=== PATIENT | male | born 1975 | race Two or more races ===

== ENCOUNTER 2023-07-18 10:09 | Emergency (ER) | payer MEDICAID, OTHER ==
[~2023-07-18] VITALS: Ht 188 cm; Wt 163.0 kg
[2023-07-18 10:21] VITALS: O2SAT 95
[2023-07-18 10:45] LABS: BASOPHILS % 0.5 % (0.0-2.0); EOSINOPHILS % 0.1 % (0.0-5.0); HEMATOCRIT. 46.9 % (42.0-52.0); HEMOGLOBIN. 15.6 g/dL (14.0-18.0); LYMPHOCYTES % 9.2 % (20.0-50.0); MEAN CORPUSCULAR HGB CONC 33.2 g/dL (31.0-37.0); MEAN CORPUSCULAR VOLUME 84.3 fL (80.0-94.0); MEAN PLATELET VOLUME 7.8 fl (7.4-10.4); MONOCYTES % 3.7 % (2.0-8.0); NEUTROPHILS % 86.5 % (40.0-76.0); PLATELET 276 x1000/uL (130-400); RED BLOOD CELL COUNT 5.56 mill/uL (4.7-6.1); RED CELL DISTRIBUTION WIDTH 13.5 % (11.6-14.6); WHITE BLOOD COUNT 11.1 x1000/uL (4.5-11.0)
[2023-07-18 10:58] LABS: CHLORIDE 106 mEq/L (98-107); POTASSIUM 3.8 mEq/L (3.5-5.1); SODIUM 140 mEq/L (136-145)
[2023-07-18 11:00] LABS: CARBON DIOXIDE 26 mEq/L (21-32)
[2023-07-18 11:05] LABS: CREATININE 0.7 mg/dL (0.6-1.3); GLUCOSE 112 mg/dL (70-105); UREA NITROGEN BLOOD 11 mg/dL (9-23)
[2023-07-18 11:07] LABS: ALANINE AMINOTRANSFERASE 33 IU/L (10-49); ALBUMIN 4.6 g/dL (3.2-4.8); ASPARTATE AMINOTRANSFERASE 40 IU/L (<34); BILIRUBIN DIRECT 0.2 mg/dL (<=3.0)
[2023-07-18 11:08] LABS: BILIRUBIN TOTAL 0.8 mg/dL (0.1-1.0); PROTEIN TOTAL 7.7 g/dL (6.0-8.3)
[2023-07-18 11:16] LABS: TROPONIN I HIGH SENSITIVITY 60 ng/L (3.0-53)
[2023-07-18 11:19] LABS: CLARITY URINE CLEAR (CLEAR); COLOR URINE DARK YELLOW (YELLOW); GLUCOSE URINE NEGATIVE (NEGATIVE); KETONES URINE NEGATIVE (NEGATIVE); LEUKOCYTE ESTERASE URINE TRACE (NEGATIVE); NITRITE URINE NEGATIVE (NEGATIVE); OCCULT BLOOD URINE NEGATIVE (NEGATIVE); PH URINE >=9.0 (4.5-8.0); PROTEIN URINE 3+ (NEGATIVE); SPECIFIC GRAVITY URINE 1.029 (1.005-1.030)
[2023-07-18 11:31] LABS: SQUAMOUS EPITHELIAL CELL URINE FEW /lpf (RARE/1+)
[2023-07-18 11:32] LABS: MUCUS URINE TRACE /lpf (NONE/TRACE)
[2023-07-18 11:33] LABS: BACTERIA URINE 1+
[2023-07-18 11:37] LABS: RBC URINE 0-2 /hpf (0-2); WBC URINE 0-2 /hpf (0-2)
[2023-07-18] MEDS: ONDANSETRON HCL 4MG/2ML INJ IV ONE (14:15)
[2023-07-18] MEDS: ASPIRIN 325MG EC TABLET PO ONE (14:56)
[2023-07-18 15:33] LABS: TROPONIN I HIGH SENSITIVITY 57 ng/L (3.0-53)
[2023-07-18] MEDS: HYDRALAZINE 20MG/ML VIAL IV NR (17:00)
[2023-07-18 17:40] VITALS: BP 114/93; PULSE 75; RESP 16; TEMP 98.2
== END 2023-07-18 18:02 | disposition short-term general hospital (02) ==
LOC: ER 10:09
DX: I21.4 Non-ST elevation (NSTEMI) myocardial infarction (principal); I16.0 Hypertensive urgency
CPT/HCPCS: 80076; 80048; 81003; 83690; 85025; 84484; 36415; 93005; 96374; 96375; 99291; J0360; J2405; Z7610 ×5

== ENCOUNTER 2023-08-20 00:49 | Emergency (ER) | payer OTHER ==
[~2023-08-20] VITALS: Ht 188 cm; Wt 180.0 kg
[2023-08-20 01:29] VITALS: O2SAT 100
[2023-08-20] MEDS ORDERED: ACETAMINOPHEN 325MG TABLET PO ONE (02:30)
[2023-08-20] MEDS ORDERED: IBUP-2029 MT (03:45)
[2023-08-20] MEDS: ACETAMINOPHEN 325MG TABLET PO NR (04:30)
[2023-08-20 04:44] VITALS: BP 130/65; PULSE 78; RESP 19; TEMP 98
== END 2023-08-20 04:46 | disposition home or self-care (01) ==
LOC: ER 01:18
DX: S62.303A Unspecified fracture of third metacarpal bone, left hand, initial encounter for closed fracture (principal); W23.1XXA Caught, crushed, jammed, or pinched between stationary objects, initial encounter; Y93.89 Activity, other specified; Y92.89 Other specified places as the place of occurrence of the external cause; Y99.8 Other external cause status
CPT/HCPCS: 73130; 99283